=== PATIENT | male | born 1970 | race Caucasian/White ===

== ENCOUNTER → 2018-08-03 | Outpatient (REF) | payer OTHER ==
[2018-08-03 14:21] LABS: FERRITIN 90 NG/ML (26-388); IRON (FE) 133 UG/DL (65-175); PERCENT SATURATION 39.1 % (19.7-50.0); TOTAL IRON BINDING CAPACITY 340 UG/DL (250-450)
[2018-08-03 14:37] LABS: HEPATITIS B SURFACE ANTIGEN NEGATIVE (NEGATIVE)
[2018-08-03 15:03] LABS: HEPATITIS C VIRUS ABY INDEX 0.2 INDEX (<0.8)
[2018-08-03 15:04] LABS: HEPATITIS B CORE ANTIBODY IGM NEGATIVE (NEGATIVE)
[2018-08-03 15:06] LABS: HEPATITIS A ANTIBODY IGM NEGATIVE (NEGATIVE)
[2018-08-05 11:06] LABS: RBC FOLATE 481.3 NG/ML (280-791)
== END ==
LOC: M LAB REF 13:37
DX: R74.8 Abnormal levels of other serum enzymes (principal)

== ENCOUNTER → 2020-01-18 | Outpatient (CLI) | payer OTHER ==
--- NOTE | 2020-01-23 12:09 | SLEEPHOME ---
DATE OF PROCEDURE: 01/18/2020 ORDERED BY: Autumn Rojas Diagnostic home sleep testing was performed due to concern for the obstructive sleep apnea syndrome in this patient with a history of excessive somnolence and nonrestorative sleep. For testing, a nocturnal T3 respiratory monitoring device was used. Continuous record was made of pulse, oxygen saturation, airflow, chest and abdominal strain and body position. 9 hours and 59 minutes of data were reviewed. There were 8 hours and 11 minutes marked as time in bed. During the interval marked time in bed, there were 54 respiratory events identified of 10 seconds in duration or greater for a respiratory event index of 6.6. The events were primarily obstructive. Baseline pulse rate 57 beats per minute, pulse rate ranged 45-70. Baseline saturation and desaturations were unable to be reported as the probe became dislodged early in the study. Testing was performed in both supine and nonsupine positions. IMPRESSION: Abnormal home sleep testing with repetitive respiratory events and a respiratory event index of 6.6 is consistent with the obstructive sleep apnea syndrome. RECOMMENDATION: The patient should be encouraged to undergo formal sleep evaluation.
== END ==
LOC: M SLEEP HO 13:18
PROVIDERS: ATTEND Nurse Practitioner Family
DX: R40.0 Somnolence (principal)

== ENCOUNTER 2023-02-11 06:58 | Day surgery (SDC) | payer OTHER ==
[~2023-02-11] VITALS: Ht 188 cm; Wt 105.7 kg
[~2023-02-11 06:58] MED LIST: GNPTAB36 PO; LIDOCAINE 2% 100MG/5ML SDV (FOR ANES.) As Ordered ONE; MULT-90 PO; NS 1,000 ML IV ONE; PARO5TAB PO; propofoL 200 MG/20 ML VIAL As Ordered ONE
[2023-02-11 08:30] VITALS: BP 111/65
== END 2023-02-11 08:42 | disposition home or self-care (01) ==
LOC: M OPP 06:58
PROVIDERS: ATTEND Surgery
DX: Z12.11 Encounter for screening for malignant neoplasm of colon (principal); D12.6 Benign neoplasm of colon, unspecified; K64.4 Residual hemorrhoidal skin tags; K64.8 Other hemorrhoids; K57.30 Diverticulosis of large intestine without perforation or abscess without bleeding; G47.33 Obstructive sleep apnea (adult) (pediatric); Z99.89 Dependence on other enabling machines and devices; Z79.899 Other long term (current) drug therapy